=== PATIENT | male | born 1985 | race African-American/Black ===

== ENCOUNTER 2018-03-09 05:01 | Emergency (ER) | payer OTHER ==
--- NOTE | 2018-03-09 05:09 | ED NECK/BACK PAIN COMPLAINT ---
History of Present Illness General Chief Complaint: Low Back Pain/Injury Stated Complaint: BACK PAIN Source: patient Exam Limitations: no limitations Vital Signs & Intake/Output Vital Signs & Intake/Output Vital Signs Date Time Temp Pulse Resp B/P B/P Pulse O2 O2 Flow FiO2 Mean Ox Delivery Rate 03/09 0521 Room Air 03/09 0511 97.4 88 18 133/79 98 Room Air Allergies Coded Allergies: No Known Allergies (03/09/18) Reconcile Medications Cyclobenzaprine HCl 10 MG TABLET 1 TAB PO 4 TIMES/DAY PRN MUSCLE SPASM Ibuprofen 800 MG TABLET 1 TAB PO TID PRN pain Oxycodone HCl/Acetaminophen (Percocet 5-325 MG Tablet) 5 MG-325 MG TABLET 1 TAB PO 4XDP PRN PAIN eight...[id number] Triage Nurses Notes Reviewed? yes Onset: Abrupt Duration: hour(s): Timing: recent history Location: lumbar spine Radiation: buttocks Context: "I have a bad disc... I stood up and the disc popped." Method of Injury: twisted Loss of Consciousness: no loss of consciousness Modifying Factors: movement, rest Associated Symptoms: muscle spasm HPI: 32 YO GENTLEMAN h/o "a slipped disc" presents with sudden onset of lumbar back pain, muscle spasm, radiating down left leg. "I was in the truck and stood up... I felt the disc pop... it really hurts... it's hard to walk." Past History Travel History Traveled to [place] past 21 day No Medical History Any Pertinent Medical History? see below for history Musculoskeletal: "Slipped disc" Surgical History Surgical History: none Family History Hx Contributory? No Review of Systems Review of Systems Constitutional: Reports: no symptoms. Eyes: Reports: no symptoms. Ears, Nose, Throat, Mouth: Reports: no symptoms. Respiratory: Reports: no symptoms. Cardiovascular: Reports: no symptoms. Gastrointestinal/Abdominal: Reports: no symptoms. Musculoskeletal: Reports: no symptoms. Skin: Reports: no symptoms. Neurological/Psychological: Reports: no symptoms. All Other Systems: Reviewed and Negative Physical Exam Physical Exam General Appearance: well developed/nourished, mild distress Head: atraumatic Eyes: Bilateral: normal appearance. Ears, Nose, Throat, Mouth: hearing grossly normal Neck: normal inspection, supple, full range of motion, normal alignment Respiratory: normal breath sounds Cardiovascular: regular rate/rhythm Gastrointestinal: soft, non-tender Back: normal inspection, muscle spasm, no vertebral tenderness Extremities: normal range of motion Neurologic/Psych: awake, alert, oriented x 3, normal mood/affect Skin: intact, normal color, warm/dry Comments: dtr's, light touch symmetric and normal in lower extremities. pt with difficulty ambulating upon initial presentation. Core Measures CVA/TIA Diagnosis: No Progress Differential Diagnosis: myofascial strain, sciatica Plan of Care: Current Medications Sig/Lizbeth Start time Last Medication Dose Stop Time Status Admin Cyclobenzaprine HCl 10 MG ONCE ONE 03/09 545 AC (Flexeril 10MG Tab) 03/09 546 Ketorolac 60 MG ONCE ONE 03/09 545 AC Tromethamine 03/09 546 (Toradol) Oxycodone/ 1 TAB ONCE ONE 03/09 545 AC Acetaminophen 03/09 546 (Percocet) Prednisone 60 MG ONCE ONE 03/09 545 AC 03/09 546 Departure Departure Disposition: HOME OR SELF CARE Condition: Stable Clinical Impression Primary Impression: Back pain Secondary Impressions: Muscle spasm Departure Forms: Customer Survey General Discharge Information Prescriptions: Current Visit Scripts Ibuprofen 1 TAB PO TID PRN pain #30 TAB Cyclobenzaprine HCl 1 TAB PO 4 TIMES/DAY PRN MUSCLE SPASM #30 TAB Ref 1 Oxycodone HCl/Acetaminophen (Percocet 5-325 MG Tablet) 1 TAB PO 4XDP PRN PAIN #8 TAB eight...[id number] Comments 03/09/18, 6:13am... pt feeling better... neurologically intact... sent rx to pharmacy... discussed at length... close follow up advised.
[2018-03-09 05:11] VITALS: BP 133/79
[2018-03-09] MEDS ORDERED: PERCOCET 5-3251 EACH PO ×2 (06:11→06:12)
[2018-03-09] MEDS ORDERED: IBUPROFEN800 M1 PO (06:11)
[2018-03-09] MEDS ORDERED: CYCLOBENZAPRINE10 M1 PO (06:11)
== END 2018-03-09 06:15 ==
LOC: ERH 05:01
DX: M54.5 Low back pain (principal); M62.838 Other muscle spasm
CPT/HCPCS: 96372; J1885